=== PATIENT | male | born 1980 | race Caucasian/White ===

== ENCOUNTER 2019-03-04 13:23 | Emergency (ER) | payer OTHER ==
[~2019-03-04] VITALS: Ht 177.8 cm; Wt 78.9 kg
[~2019-03-04 13:23] MED LIST: CLEOCIN HCL300 MG PO; LEXAPRO20 MG PO; PREDNISONE 20 M20 MG PO; SUPRAX400 M1 PO
[2019-03-04] MEDS ORDERED: MOBIC7.5 MG PO (14:15)
[2019-03-04] MEDS ORDERED: NORFLEX100 MG PO (14:15)
[2019-03-04 15:10] VITALS: BP 122/74
== END 2019-03-04 15:10 | disposition home or self-care (01) ==
LOC: ER 13:23
DX: S39.012A Strain of muscle, fascia and tendon of lower back, initial encounter (principal); Z88.2 Allergy status to sulfonamides; X58.XXXA Exposure to other specified factors, initial encounter; Y92.89 Other specified places as the place of occurrence of the external cause; Y93.89 Activity, other specified; Y99.8 Other external cause status